=== PATIENT | male | born 1995 | race American Indian/Alaskan Native ===

== ENCOUNTER 2021-03-28 02:04 | Emergency (ER) | payer SELFPAY ==
--- NOTE | 2021-03-28 04:29 | Emergency Department Report ---
ED ENT HPI - General Chief complaint: Dental/Oral Stated complaint: SPITTING BLOOD Time Seen by Provider: 03/28/21 03:29 Source: patient Mode of arrival: Ambulatory Limitations: No Limitations - History of Present Illness Initial comments: 25-year-old male presents emerged from complaining's itching with blood tinged saliva earlier this morning which spontaneously resolved. Reports no sore throat no odynophagia or dysphasia. No dental trauma. No fever, chills, sweats but no neck pain, no nausea, no vomiting -: Gradual Severity: moderate Quality: aching, dull Consistency: constant Worsens with: none Context- Dental: history of dental caries, poor dental care - Related Data Previous Rx's Medication Instructions Recorded Last Taken Type ALBUTEROL Inhaler(NF) [VENTOLIN 2 puff IH TID #1 inha 01/31/18 Unknown Rx Inhaler(NF)] guaiFENesin [Robitussin] 200 mg PO TID #100 ml 01/31/18 Unknown Rx predniSONE [Deltasone] 20 mg PO DAILY #4 tablet 01/31/18 Unknown Rx Chlorhexidine Mouthwash [Peridex] 15 ml MM BID #1 bottle 03/28/21 Unknown Rx Allergies Allergy/AdvReac Type Severity Reaction Status Date / Time No Known Allergies Allergy Unverified 01/31/18 12:15 ED Dental HPI - General Chief complaint: Dental/Oral Stated complaint: SPITTING BLOOD Time Seen by Provider: 03/28/21 03:29 Source: patient Mode of arrival: Ambulatory Limitations: No Limitations - Related Data Previous Rx's Medication Instructions Recorded Last Taken Type ALBUTEROL Inhaler(NF) [VENTOLIN 2 puff IH TID #1 inha 01/31/18 Unknown Rx Inhaler(NF)] guaiFENesin [Robitussin] 200 mg PO TID #100 ml 01/31/18 Unknown Rx predniSONE [Deltasone] 20 mg PO DAILY #4 tablet 01/31/18 Unknown Rx Chlorhexidine Mouthwash [Peridex] 15 ml MM BID #1 bottle 03/28/21 Unknown Rx Allergies Allergy/AdvReac Type Severity Reaction Status Date / Time No Known Allergies Allergy Unverified 01/31/18 12:15 ED Review of Systems ROS: Stated complaint: SPITTING BLOOD Other details as noted in HPI Comment: All other systems reviewed and negative ED Past Medical Hx - Surgical History Additional Surgical History: right hip fx repair - Social History Smoking Status: Current Every Day Smoker Substance Use Type: None - Medications Home Medications: Home Medications Medication Instructions Recorded Confirmed Last Taken Type ALBUTEROL Inhaler(NF) [VENTOLIN 2 puff IH TID #1 inha 01/31/18 Unknown Rx Inhaler(NF)] guaiFENesin [Robitussin] 200 mg PO TID #100 ml 01/31/18 Unknown Rx predniSONE [Deltasone] 20 mg PO DAILY #4 tablet 01/31/18 Unknown Rx Chlorhexidine Mouthwash [Peridex] 15 ml MM BID #1 bottle 03/28/21 Unknown Rx ED Physical Exam - General Limitations: No Limitations General appearance: alert, in no apparent distress - Head Head exam: Present: atraumatic, normocephalic - Eye Eye exam: Present: normal appearance, PERRL, EOMI Pupils: Present: normal accommodation - ENT ENT exam: Present: mucous membranes moist, other (Erythema to the gingiva with w ith multiple dental caries. Airway is patent and uvula midline no evidence of any abscess.) - Neck Neck exam: Present: normal inspection, full ROM. Absent: meningismus, lymphadenopathy, thyromegaly - Respiratory Respiratory exam: Present: normal lung sounds bilaterally. Absent: respiratory distress, wheezes, rales - Cardiovascular Cardiovascular Exam: Present: regular rate, normal rhythm. Absent: systolic murmur, diastolic murmur, rubs, gallop - GI/Abdominal GI/Abdominal exam: Present: soft, normal bowel sounds - Rectal Rectal exam: Present: deferred - Extremities Exam Extremities exam: Present: normal inspection - Back Exam Back exam: Present: normal inspection - Neurological Exam Neurological exam: Present: alert, oriented X3 - Psychiatric Psychiatric exam: Present: normal affect, normal mood - Skin Skin exam: Present: warm, dry, intact, normal color. Absent: rash ED Course Vital Signs 03/28/21 03:13 Temperature 97.7 F Pulse Rate 68 Respiratory 18 Rate Blood Pressure 135/87 [Right] O2 Sat by Pulse 97 Oximetry Critical care attestation.: If time is entered above; I have spent that time in minutes in the direct care of this critically ill patient, excluding procedure time. ED Disposition Clinical Impression: Gingivitis Disposition: 01 HOME / SELF CARE / HOMELESS Is pt being admited?: No Does the pt Need Aspirin: No Condition: Stable Instructions: Preventive Dental Care, Adult Prescriptions: Chlorhexidine Mouthwash [Peridex] 15 ml MM BID #1 bottle Referrals: [facility] [Outside] - 3-5 Days
[2021-03-28 05:12] VITALS: BP 139/90
== END 2021-03-28 05:13 | disposition home or self-care (01) ==
LOC: ED 02:04
DX: K05.10 Chronic gingivitis, plaque induced (principal); F17.200 Nicotine dependence, unspecified, uncomplicated
CPT/HCPCS: 99282

== ENCOUNTER 2021-04-16 00:41 | Emergency (ER) | payer SELFPAY ==
[2021-04-16 04:46] LABS: Bilirubin,Urine NEG (Negative); Blood,Urine NEG (Negative); Color,Urine Yellow (Yellow); Mucus,Urine 2+ /HPF; Protein,Urine <15 mg/dL mg/dL (Negative)
[2021-04-16] MEDS ORDERED: LIDOCAINE-MPF (1%) 10 MG/1 ML VIAL 5 ML INFILTRATI ONE (04:52)
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
[2021-04-16 05:59] VITALS: BP 141/64
== END 2021-04-16 05:48 | disposition home or self-care (01) ==
LOC: ED 00:41
DX: N34.2 Other urethritis (principal); A64 Unspecified sexually transmitted disease; F17.200 Nicotine dependence, unspecified, uncomplicated; Z79.899 Other long term (current) drug therapy
CPT/HCPCS: 81001; 96372; 99283; J0696; J3490

== ENCOUNTER 2021-07-12 16:28 | Emergency (ER) | payer OTHER ==
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
[2021-07-12] MEDS ORDERED: HYDROmorphone 0.5 MG/0.5 ML INJ IV ONE (16:58)
[2021-07-12] MEDS ORDERED: SODIUM CHLORIDE 0.9% 1000 ML 1,000 ML IV ONE (16:58)
[2021-07-12] MEDS ORDERED: ONDANSETRON 4 MG/2 ML INJ IV ONE (16:58)
[2021-07-12 17:00] VITALS: BP 127/77
[2021-07-12 17:31] LABS: Basophils # (Auto) 0.1 K/mm3 (0.0-0.1); Basophils % (Auto) 0.6 % (0.0-1.8); Eosinophils % (Auto) 0.5 % (0.0-4.3); Hematocrit 46.8 % (35.5-45.6); Hemoglobin 15.9 gm/dl (11.8-15.2); Lymphocytes # (Auto) 2.1 K/mm3 (1.2-5.4); Lymphocytes % (Auto) 21.5 % (13.4-35.0); Mean Corpuscular HGB Conc 34 % (32-34); Mean Corpuscular Volume 96 fl (84-94); Monocytes # (Auto) 0.7 K/mm3 (0.0-0.8); Monocytes % (Auto) 6.7 % (0.0-7.3); Platelet Count 268 K/mm3 (140-440); Red Blood Count 4.87 M/mm3 (3.65-5.03); Red Cell Distribution Width 13.8 % (13.2-15.2)
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
[2021-07-12 17:49] LABS: Alanine Aminotransferase 22 units/L (7-56); Albumin 4.8 g/dL (3.9-5); BUN/Creatinine Ratio 12; Blood Urea Nitrogen 14 mg/dL (9-20); Calcium 9.6 mg/dL (8.4-10.2); Hemolysis Index 6
[2021-07-12 17:52] LABS: INR 0.87 (0.87-1.13); Partial Thromboplastin Time 26.7 Sec. (24.2-36.6)
[2021-07-12] MEDS ORDERED: ceFAZolin/NS 1 GM/50 ML 1 GM/50 ML BAG IV ONE (18:25)
[2021-07-12] MEDS ORDERED: TETANUS,DIPHTHERIA TOXOID ADULT 0.5 ML INJ IM ONE (19:20)
[2021-07-12] MEDS ORDERED: NEOMY 3.5 MG/BACIT 400 UNITS/POLY B 5000 UNITS/GM OINT PACKET TP ONE (20:50)
== END 2021-07-12 21:37 | disposition home or self-care (01) ==
LOC: ED 16:28
DX: S40.211A Abrasion of right shoulder, initial encounter (principal); S31.819A Unspecified open wound of right buttock, initial encounter; S91.331A Puncture wound without foreign body, right foot, initial encounter; X95.8XXA Assault by other firearm discharge, initial encounter; Y93.89 Activity, other specified; Y92.89 Other specified places as the place of occurrence of the external cause; Y99.8 Other external cause status
CPT/HCPCS: 36415; 72170; 73030; 73630; 80053; 85025; 85610; 85730; 90471; 90714; 96361; 96365; 96375; 99291; J0690; J2405; J7030; 96372; 99284

== ENCOUNTER 2021-08-17 03:09 | Emergency (ER) | payer OTHER ==
[2021-08-17 05:11] VITALS: BP 137/87
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
== END 2021-08-17 09:49 | disposition home or self-care (01) ==
LOC: ED 03:09
DX: L03.113 Cellulitis of right upper limb (principal)
CPT/HCPCS: 99282